=== PATIENT | female | born 1955 ===

== ENCOUNTER → 2018-12-16 | Outpatient (REF) ==
[2018-12-16 04:26] LABS: BASO % 0.2 % (0.0-2.0); GRAN # 11.6 (1.4-6.5); GRAN % 88.6 % (42.2-75.2); HEMOGLOBIN 11.6 g/dl (12.5-16.0); LYMPH # 0.8 (1.2-3.4); LYMPH % 5.9 % (20.0-51.0); MEAN CELL VOLUME 94 fl (80.0-100.0); MEAN CORPUSCULAR HEMOGLOBIN 31 pg (27.0-31.0); MEAN CORPUSCULAR HGB CONC 33 g/dl (33.0-37.0); MEAN PLATELET VOLUME 10.1 fl (7.4-10.4); MONO # 0.7 (0.1-0.6); PLATELET COUNT 212 K/mm3 (130-400); RED BLOOD COUNT 3.71 M/mm3 (4.10-5.30); REDCELL DISTRIBUTION WIDTH-CV 12.1 % (11.5-14.5)
[2018-12-16 04:30] LABS: HEMATOCRIT 34.9 % (37.0-47.0)
[2018-12-16 04:36] LABS: ALBUMIN 3.4 gm/dL (3.5-5.0); BILIRUBIN,TOTAL 0.3 mg/dL (0.0-1.0); CALCIUM 8.8 mg/dL (8.4-10.2); CREATININE, serum 1.13 mg/dL (0.52-1.25); POTASSIUM 4.5 mmol/L (3.4-5.0); TOTAL PROTEIN 6.1 gm/dL (6.4-8.2)
== END ==
LOC: ZMSC 18:54
PROVIDERS: Obstetrics & Gynecology
DX: Z01.89 Encounter for other specified special examinations (principal)

== ENCOUNTER → 2018-12-16 | Outpatient (REF) | LOC: ZCOL.LAB 04:20 | DX: Z01.89 Encounter for other specified special examinations (principal) ==